=== PATIENT | male | born 1950 | race Hispanic/Latino ===

== ENCOUNTER 2017-09-03 06:55 | Day surgery (SDC) | payer BC, MEDICARE ==
[2017-09-02 12:21] VITALS: BMI 32.1
[2017-09-03 07:38] LABS: BASO # 0.02 K/mm3 (0.0-2.0); BASO % 0.4 % (0.0-3.0); EOS # 0.1 (0.0-0.7); EOS % 1.4 % (1.5-5.0); GRAN # 2.61 (1.4-6.5); GRAN % 52.6 % (50.0-68.0); HEMATOCRIT 39.7 % (42.0-52.0); LYMPH # 1.9 (1.2-3.4); LYMPH % 37.6 % (22.0-35.0); MEAN CELL VOLUME 96.4 fl (80.0-105.0); MEAN CORPUSCULAR HEMOGLOBIN 31.6 pg (25.0-35.0); MEAN CORPUSCULAR HGB CONC 32.7 g/dl (31.0-37.0); MEAN PLATELET VOLUME 8.9 fl (7.0-11.0); MONO # 0.4 (0.1-0.6); RED CELL DISTRIBUTION WIDTH 13.8 % (11.5-14.5)
[2017-09-03 07:45] LABS: BLOOD UREA NITROGEN 17 mg/dL (7-21); CALCIUM 9.2 mg/dL (8.4-10.5); CARBON DIOXIDE 24 mmol/L (21-33); CHLORIDE 107 mmol/L (98-107); GFR AFRICAN-AMERICAN > 60; GLUCOSE,RANDOM 89 mg/dL (70-110); POTASSIUM 3.9 mmol/L (3.6-5.0); SODIUM 141 mmol/L (132-148)
[2017-09-03 07:46] LABS: INR 0.98 (0.93-1.08); PARTIAL THROMBOPLASTIN TIME 26.2 Seconds (25.1-36.5)
[2017-09-03] MEDS ORDERED: Lidocaine 2% Inj (20ml) ONE (07:53)
[2017-09-03] MEDS ORDERED: Midazolam 2 MG/2 ML VIAL ONE ×3 (07:53→08:52)
[2017-09-03] MEDS ORDERED: HEPARIN SODIUM/NS 2,000 ML IV ONE (07:54)
[2017-09-03] MEDS ORDERED: Iodixanol 320 MG/ML 200 ML BOTTLE IV ONE (07:54)
[2017-09-03] MEDS ORDERED: Sodium Chloride 0.9% 1,000 ML IV SCH (09:30)
[2017-09-03 09:43] VITALS: RESP 18; TEMP 97.8
[2017-09-03 10:35] VITALS: O2SAT 94
--- NOTE | 2017-09-03 12:18 | CARDCATH ---
PROCEDURE DATE: 09/03/2017 HISTORY: The patient is a 67-year-old male with a history of multivessel PTCA and stent in the past as well as a history of hypertension and hypercholesterolemia, who presents with recurrence of angina and exertional shortness of breath. The patient states the symptoms are similar to his previous symptoms before his multivessel PTCA. Because of his symptoms progressing, a cardiac catheterization was recommended. PROCEDURES: Left heart catheterization with coronary arteriography and left ventriculogram. The right femoral artery was cannulated with A 6-Turkmen sheath. There were no complications. I performed moderate sedation which included the presence of an independent trained observer that assisted in monitoring the patient's level of consciousness and physiologic status. After administration of Versed and fentanyl, my intra service time was 15 minutes. The findings on catheterization revealed a left ventricle that contracted normally. Estimated ejection fraction of 50-55%. His coronary anatomy revealed a right dominant circulation. The RCA revealed multiple patent stents in the proximal and midportion. There were intimal irregularities without critical lesions. The left main artery was unremarkable. The circumflex artery revealed multiple obtuse marginal branches. There were intimal irregularities throughout its course. In the third obtuse marginal branch, there was a 50% stenosis noted. The LAD and diagonal vessels revealed diffuse atherosclerosis throughout its course. There is a patent stent in the proximal diagonal vessel as well as a patent stent in the mid LAD. Further down in the LAD, in the midportion, there were diffuse intimal irregularities with a 50% stenosis in the midportion. Manual compression was used to close the femoral artery site. The patient tolerated the procedure well. In summary, the procedure revealed normal LV function. Patent stents in the RCA, diagonal vessel, and LAD. A 50% stenosis in the third obtuse marginal branch as well as a 50% stenosis in the mid LAD. Given these findings, the patient's treatment should be continued medical therapy. He needs to remain on aspirin and continue a cardiac risk reduction program. Weight loss would be appropriate and help his symptoms. Jerry Nickerson MD
[2017-09-03 15:34] VITALS: BP 132/70; PULSE 60
--- NOTE | 2017-09-04 09:47 | CARD ---
APPROVED REPORT EKG Measurement Heart [id number] <Conclusion> Normal sinus rhythm LVH by voltage, new
== END 2017-09-03 16:15 | disposition home or self-care (01) ==
LOC: CATH 06:55
PROVIDERS: ATTEND Internal Medicine Cardiovascular Disease
DX: I25.119 Atherosclerotic heart disease of native coronary artery with unspecified angina pectoris (principal); E78.00 Pure hypercholesterolemia, unspecified; I10 Essential (primary) hypertension; Z95.5 Presence of coronary angioplasty implant and graft; E78.5 Hyperlipidemia, unspecified; R94.31 Abnormal electrocardiogram [ECG] [EKG]
CPT/HCPCS: 36415; 80048; 85025; 85610; 85730; 86850; 86900; 93005; 93458; 99152; C1769; C2629; J1644; J2250; J3010; J7040 ×2